=== PATIENT | male | born 1955 | race Caucasian/White ===

== ENCOUNTER → 2016-08-07 | Outpatient (CLI) | payer MEDICAID ==
[2016-08-07 11:28] LABS: HEMATOCRIT 42.9 % (37.9-51.0); HEMOGLOBIN 14.4 g/dL (13.5-17.0); HGB HCT DIFFERENCE 0.3; MEAN CORPUSCULAR HEMOGLOBIN 29.2 pg (27.0-33.4); MEAN CORPUSCULAR HGB CONC 33.6 g/dL (32.0-36.0); MEAN CORPUSCULAR VOLUME 87 fl (80-97); RED BLOOD COUNT 4.93 10^6/uL (4.35-5.55); RED CELL DISTRIBUTION WIDTH 13.3 % (11.5-14.0); WHITE BLOOD COUNT 3.4 10^3/uL (4.0-10.5)
[2016-08-07 11:51] LABS: ALANINE AMINOTRANSFERASE 98 U/L (21-72); ALBUMIN 4.2 g/dL (3.5-5.0); ALKALINE PHOSPHATASE 56 U/L (38-126); ANION GAP 10 (5-19); ASPARTATE AMINO TRANSFERASE 82 U/L (17-59); BILIRUBIN,TOTAL 0.7 mg/dL (0.2-1.3); BLOOD UREA NITROGEN 13 mg/dL (7-20); CALCIUM 9.5 mg/dL (8.4-10.2); CARBON DIOXIDE 26 mmol/L (22-30); CHLORIDE 106 mmol/L (98-107); CREATININE RESULT 0.99 mg/dL (0.52-1.25); GLUCOSE 89 mg/dL (75-110); POTASSIUM 4.5 mmol/L (3.6-5.0); SODIUM 142.1 mmol/L (137-145); TOTAL PROTEIN 7.4 g/dL (6.3-8.2)
== END ==
LOC: LAB 11:14
PROVIDERS: ATTEND Internal Medicine Gastroenterology
DX: K70.30 Alcoholic cirrhosis of liver without ascites (principal); R16.2 Hepatomegaly with splenomegaly, not elsewhere classified
CPT/HCPCS: 36415; 80048; 80076; 82105; 85027

== ENCOUNTER → 2017-02-28 | Outpatient (CLI) | payer MEDICAID ==
[2017-02-28 11:01] LABS: HEMATOCRIT 41.8 % (37.9-51.0); HEMOGLOBIN 14.4 g/dL (13.5-17.0); HGB HCT DIFFERENCE 1.4; MEAN CORPUSCULAR HEMOGLOBIN 30.3 pg (27.0-33.4); MEAN CORPUSCULAR HGB CONC 34.5 g/dL (32.0-36.0); MEAN CORPUSCULAR VOLUME 88 fl (80-97); RED BLOOD COUNT 4.76 10^6/uL (4.35-5.55); RED CELL DISTRIBUTION WIDTH 14.2 % (11.5-14.0)
[2017-02-28 11:21] LABS: ALANINE AMINOTRANSFERASE 120 U/L (21-72); ALKALINE PHOSPHATASE 57 U/L (38-126); ANION GAP 9 (5-19); ASPARTATE AMINO TRANSFERASE 113 U/L (17-59); BILIRUBIN,DIRECT 0.5 mg/dL (0.0-0.4); BILIRUBIN,TOTAL 0.9 mg/dL (0.2-1.3); BLOOD UREA NITROGEN 15 mg/dL (7-20); CALCIUM 9.2 mg/dL (8.4-10.2); CARBON DIOXIDE 25 mmol/L (22-30); CHLORIDE 104 mmol/L (98-107); CREATININE RESULT 1.06 mg/dL (0.52-1.25); GLUCOSE 97 mg/dL (75-110); POTASSIUM 4.5 mmol/L (3.6-5.0); SODIUM 137.9 mmol/L (137-145); TOTAL PROTEIN 7.3 g/dL (6.3-8.2)
== END ==
LOC: OD 09:36
PROVIDERS: ATTEND Physician Assistant Surgical
DX: K74.69 Other cirrhosis of liver (principal); R94.5 Abnormal results of liver function studies; K70.0 Alcoholic fatty liver; R16.1 Splenomegaly, not elsewhere classified
CPT/HCPCS: 36415; 80053; 82105; 85027

== ENCOUNTER → 2017-03-08 | Outpatient (CLI) | payer MEDICAID ==
--- NOTE | 2017-03-08 11:01 | RADIOLOGY REPORT (SQ) ---
EXAM DESCRIPTION: U/S ABDOMEN COMPLETE W/DOPPLER COMPLETED DATE/TIME: 03/08/2017 10:39 am REASON FOR STUDY: ALCOHOLIC FATTY LIVER R16.0 HEPATOMEGALY, NOT ELSEWHERE CLASSIFIED COMPARISON: None. TECHNIQUE: Dynamic and static grayscale images acquired of the abdomen and recorded on PACS. Additio nal selected color Doppler and spectral images recorded. LIMITATIONS: Body habitus. FINDINGS: PANCREAS: Poorly seen secondary to acoustical interference from fat or from air in the bow el. No visualized masses. Duct normal caliber as seen. LIVER: Heterogeneous echotexture. No mass identified. LIVER VASCULATURE: Normal directional flow in the main portal vein. Hepatic veins not visualized. GALLBLADDER: No stones. Normal wall thickness. No pericholecystic fluid. ULTRASOUND-DETECTED PELAYO'S SIGN: Negative. INTRAHEPATIC DUCTS AND COMMON DUCT: Limited visualization. Common bile duct approximately 3 mm. INFERIOR VENA CAVA: Not visualized. AORTA: No aneurysm. RIGHT KIDNEY: Normal size. Normal echogenicity. No solid or suspicious masses. No hydronephros is. No calcifications. LEFT KIDNEY: Normal size. Normal echogenicity. No solid or suspicious masses. No hydronephrosi s. No calcifications. SPLEEN:15.3 cm. No focal lesions. PERITONEAL AND PLEURAL SPACES: No ascites or effusions. OTHER: No other significant finding. IMPRESSION: Medical hepatic disease. Splenomegaly. No ascites. TECHNICAL DOCUMENTATION: JOB ID: [id number] [employer]- All Rights Reserved
== END ==
LOC: RAD 09:35
PROVIDERS: ATTEND Internal Medicine Gastroenterology
DX: K70.0 Alcoholic fatty liver (principal); R16.1 Splenomegaly, not elsewhere classified
CPT/HCPCS: 76700; 93976

== ENCOUNTER → 2018-03-05 | Outpatient (CLI) | payer MEDICARE ==
[2018-03-05 12:07] LABS: INTERNATIONAL RATION (INR) 1.02; PROTHROMBIN TIME 13.9 SEC (11.4-15.4)
[2018-03-05 12:16] LABS: ABSOLUTE EOSINOPHILS # (AUTO) 0.1 10^3/uL (0.0-0.6); ABSOLUTE LYMPHOCYTES (AUTO) 0.7 10^3/uL (0.5-4.7); ABSOLUTE MONOCYTES (AUTO) 0.2 10^3/uL (0.1-1.4); ABSOLUTE NEUT (AUTO) 1.7 10^3/uL (1.7-8.2); BASOPHILS % (AUTO) 0.8 % (0-2); EOSINOPHILS % (AUTO) 4.4 % (0-6); HEMOGLOBIN 14.2 g/dL (13.5-17.0); LYMPHOCYTES % (AUTO) 27.1 % (13-45); MEAN CORPUSCULAR HEMOGLOBIN 30.5 pg (27.0-33.4); MEAN CORPUSCULAR HGB CONC 34.7 g/dL (32.0-36.0); MEAN CORPUSCULAR VOLUME 88 fl (80-97); RED BLOOD COUNT 4.66 10^6/uL (4.35-5.55); RED CELL DISTRIBUTION WIDTH 13.6 % (11.5-14.0); SEGMENTED NEUTROPHILS % (AUTO) 60.7 % (42-78); TOTAL CELLS COUNTED % (AUTO) 100 %; WHITE BLOOD COUNT 2.8 10^3/uL (4.0-10.5)
[2018-03-05 12:33] LABS: PLATELET COUNT 90 10^3/uL (150-450)
[2018-03-05 12:34] LABS: ALANINE AMINOTRANSFERASE 99 U/L (21-72); ALBUMIN 3.7 g/dL (3.5-5.0); ALKALINE PHOSPHATASE 54 U/L (38-126); ANION GAP 11 (5-19); ASPARTATE AMINO TRANSFERASE 104 U/L (17-59); BILIRUBIN,DIRECT 0.4 mg/dL (0.0-0.4); BILIRUBIN,TOTAL 0.9 mg/dL (0.2-1.3); BLOOD UREA NITROGEN 14 mg/dL (7-20); CALCIUM 9.1 mg/dL (8.4-10.2); CARBON DIOXIDE 23 mmol/L (22-30); CHLORIDE 108 mmol/L (98-107); POTASSIUM 4.6 mmol/L (3.6-5.0); SODIUM 142.4 mmol/L (137-145); TOTAL PROTEIN 7.1 g/dL (6.3-8.2)
[2018-03-05 12:36] LABS: GLUCOSE 97 mg/dL (75-110)
== END ==
LOC: OD 11:15
PROVIDERS: ATTEND Physician Assistant Surgical
DX: K70.30 Alcoholic cirrhosis of liver without ascites (principal); D69.6 Thrombocytopenia, unspecified
CPT/HCPCS: 36415; 80053; 82105; 85025; 85610

== ENCOUNTER → 2018-03-11 | Outpatient (CLI) | payer BC, MEDICARE ==
--- NOTE | 2018-03-11 09:40 | RADIOLOGY REPORT (SQ) ---
EXAM DESCRIPTION: U/S ABDOMEN LIMITED W/O DOP COMPLETED DATE/TIME: 03/11/2018 9:12 am REASON FOR STUDY: K70.30 ALCOHOLIC CIRRHOSIS OF LIVER WITHOUT ASCITES K70.30 ALCOHOLIC CIRRHOSIS OF LIVER WITHOUT ASCITES R16.1 SPLENOMEGALY, NOT ELSEWHERE CLASSIFIED COMPARISON: 03/08/2017 TECHNIQUE: Dynamic and static grayscale images acquired of the abdomen and recorded on PACS. Additio nal selected color Doppler and spectral images recorded. LIMITATIONS: None. FINDINGS: PANCREAS: Limited visualization. No focal masses. LIVER: There is fatty infiltration of the liver. No focal lesions. LIVER VASCULATURE: Normal directional flow of the main portal vein and hepatic veins. GALLBLADDER: There is gallbladder sludge. No stones. No wall thickening. ULTRASOUND-DETECTED PELAYO'S SIGN: Negative. INTRAHEPATIC DUCTS AND COMMON DUCT: CBD and intrahepatic ducts normal caliber. No filling defects. INFERIOR VENA CAVA: Not visualized. AORTA: Visualized aorta is unremarkable. RIGHT KIDNEY: Normal size. Normal echogenicity. No solid or suspicious masses. No hydronephrosis. No calcifications. PERITONEAL AND RIGHT PLEURAL SPACE: No ascites or effusions. OTHER: No other significant findings. IMPRESSION: Fatty infiltrated liver. Gallbladder sludge. No other significant findings. TECHNICAL DOCUMENTATION: JOB ID: [id number] [employer]- All Rights Reserved Reading location - IP/workstation name: [email or web address]
== END ==
LOC: RAD 08:04
PROVIDERS: ATTEND Internal Medicine Gastroenterology
DX: K70.30 Alcoholic cirrhosis of liver without ascites (principal); R16.1 Splenomegaly, not elsewhere classified
CPT/HCPCS: 76705

== ENCOUNTER → 2018-06-10 | Outpatient (CLI) | payer MEDICARE ==
--- NOTE | 2018-06-10 10:14 | RADIOLOGY REPORT (SQ) ---
EXAM DESCRIPTION: KNEE LEFT 4 VIEWS COMPLETED DATE/TIME: 06/10/2018 9:55 am REASON FOR STUDY: PAIN IN LT KNEE M25.562 PAIN IN LEFT KNEE COMPARISON: 09/01/2014 NUMBER OF VIEWS: Four views. TECHNIQUE: AP, lateral, and both oblique radiographic images acquired of the left knee. LIMITATIONS: None. FINDINGS: MINERALIZATION: Normal. BONES: No acute fracture or dislocation. No worrisome bone lesions. JOINT: No effusion. SOFT TISSUES: No soft tissue swelling. No radio-opaque foreign body. OTHER: No other significant finding. IMPRESSION: NEGATIVE STUDY OF THE LEFT KNEE. NO RADIOGRAPHIC EVIDENCE OF ACUTE INJURY. TECHNICAL DOCUMENTATION: JOB ID: [id number] [employer]- All Rights Reserved Reading location - IP/workstation name: [email or web address]
== END ==
LOC: OD 09:40
PROVIDERS: ATTEND Family Medicine
DX: M25.562 Pain in left knee (principal)

== ENCOUNTER → 2018-09-10 | Outpatient (CLI) | payer MEDICARE ==
[2018-09-10 09:10] LABS: HEMATOCRIT 40.5 % (37.9-51.0); HEMOGLOBIN 14.2 g/dL (13.5-17.0); MEAN CORPUSCULAR HEMOGLOBIN 31.5 pg (27.0-33.4); MEAN CORPUSCULAR HGB CONC 35.1 g/dL (32.0-36.0); MEAN CORPUSCULAR VOLUME 90 fl (80-97); RED BLOOD COUNT 4.52 10^6/uL (4.35-5.55); RED CELL DISTRIBUTION WIDTH 13.7 % (11.5-14.0); WHITE BLOOD COUNT 2.5 10^3/uL (4.0-10.5)
[2018-09-10 09:21] LABS: INTERNATIONAL RATION (INR) 0.97; PROTHROMBIN TIME 13.4 SEC (11.4-15.4)
[2018-09-10 09:33] LABS: CHOLESTEROL 221.02 mg/dL (0-200); TRIGLYCERIDES 140 mg/dL (<150)
[2018-09-10 09:34] LABS: PLATELET COUNT 87 10^3/uL (150-450)
[2018-09-10 09:37] LABS: ALANINE AMINOTRANSFERASE 102 U/L (21-72); ALKALINE PHOSPHATASE 66 U/L (38-126); ANION GAP 8 (5-19); ASPARTATE AMINO TRANSFERASE 120 U/L (17-59); BILIRUBIN,DIRECT 0.3 mg/dL (0.0-0.4); BILIRUBIN,TOTAL 0.7 mg/dL (0.2-1.3); BLOOD UREA NITROGEN 15 mg/dL (7-20); CALCIUM 9.6 mg/dL (8.4-10.2); CARBON DIOXIDE 25 mmol/L (22-30); CHLORIDE 109 mmol/L (98-107); GLUCOSE 102 mg/dL (75-110); POTASSIUM 4.2 mmol/L (3.6-5.0); SODIUM 141.6 mmol/L (137-145); TOTAL PROTEIN 7.1 g/dL (6.3-8.2)
[2018-09-10 09:44] LABS: DIRECT LDL 111 mg/dL (<100)
== END ==
LOC: OD 07:55
PROVIDERS: ATTEND Physician Assistant Surgical
DX: E78.5 Hyperlipidemia, unspecified (principal); I10 Essential (primary) hypertension; K70.30 Alcoholic cirrhosis of liver without ascites; Z12.5 Encounter for screening for malignant neoplasm of prostate; M17.0 Bilateral primary osteoarthritis of knee
CPT/HCPCS: 36415; 84443; 85027; 85610; 80076; 80048; 80061; G0103

== ENCOUNTER → 2019-05-04 | Outpatient (CLI) | payer MEDICARE ==
--- NOTE | 2019-05-04 11:30 | RADIOLOGY REPORT (SQ) ---
EXAM DESCRIPTION: U/S ABDOMEN LIMITED W/O DOP COMPLETED DATE/TIME: 05/04/2019 7:58 am REASON FOR STUDY: ALCOHOLIC CIRRHOSIS OF LIVER W/O ASCITES (K70.30) K70.30 ALCOHOLIC CIRRHOSIS OF L IVER WITHOUT ASCITES COMPARISON: 03/11/2018 TECHNIQUE: Dynamic and static grayscale images acquired of the abdomen and recorded on PACS. Additio nal selected color Doppler and spectral images recorded. LIMITATIONS: None. FINDINGS: PANCREAS: No masses. Visualized pancreatic duct normal caliber. LIVER: The liver is somewhat nodular. There is increased echogenicity. LIVER VASCULATURE: Normal directional flow of the main portal vein and hepatic veins. GALLBLADDER: No stones. Normal wall thickness. No pericholecystic fluid. ULTRASOUND-DETECTED PELAYO'S SIGN: Negative. INTRAHEPATIC DUCTS AND COMMON DUCT: CBD and intrahepatic ducts normal caliber. No filling defects. INFERIOR VENA CAVA: Normal flow. AORTA: No aneurysm. RIGHT KIDNEY: Normal size, 13.2 cm. Normal echogenicity. No solid or suspicious masses. No hydroneph rosis. No calcifications. PERITONEAL AND RIGHT PLEURAL SPACE: No ascites or effusions. OTHER: No other significant findings. IMPRESSION: Hepatic cirrhosis. No ascites. TECHNICAL DOCUMENTATION: JOB ID: [id number] [employer]- All Rights Reserved Reading location - IP/workstation name: [email or web address]
== END ==
LOC: RAD 07:05
PROVIDERS: ATTEND Internal Medicine Gastroenterology
DX: K70.30 Alcoholic cirrhosis of liver without ascites (principal)
CPT/HCPCS: 76705

== ENCOUNTER → 2019-05-20 | Outpatient (CLI) | payer MEDICARE ==
[2019-05-20 14:34] LABS: ABSOLUTE EOSINOPHILS # (AUTO) 0.2 10^3/uL (0.0-0.6); ABSOLUTE LYMPHOCYTES (AUTO) 0.9 10^3/uL (0.5-4.7); ABSOLUTE MONOCYTES (AUTO) 0.3 10^3/uL (0.1-1.4); ABSOLUTE NEUT (AUTO) 1.9 10^3/uL (1.7-8.2); BASOPHILS % (AUTO) 0.9 % (0-2); HEMOGLOBIN 15.2 g/dL (13.5-17.0); MEAN CORPUSCULAR HEMOGLOBIN 31.7 pg (27.0-33.4); MEAN CORPUSCULAR HGB CONC 35.3 g/dL (32.0-36.0); MEAN CORPUSCULAR VOLUME 90 fl (80-97); MONOCYTES % (AUTO) 8.2 % (3-13); RED BLOOD COUNT 4.78 10^6/uL (4.35-5.55); RED CELL DISTRIBUTION WIDTH 13.8 % (11.5-14.0); SEGMENTED NEUTROPHILS % (AUTO) 58.9 % (42-78); TOTAL CELLS COUNTED % (AUTO) 100 %; WHITE BLOOD COUNT 3.2 10^3/uL (4.0-10.5)
[2019-05-20 14:35] LABS: INTERNATIONAL RATION (INR) 1.11; PROTHROMBIN TIME 14.3 SEC (11.4-15.4)
[2019-05-20 14:56] LABS: ALKALINE PHOSPHATASE 69 U/L (38-126); ANION GAP 11 (5-19); ASPARTATE AMINO TRANSFERASE 138 U/L (17-59); BILIRUBIN,DIRECT 0.3 mg/dL (0.0-0.4); BILIRUBIN,TOTAL 1.1 mg/dL (0.2-1.3); BLOOD UREA NITROGEN 14 mg/dL (7-20); CALCIUM 9.6 mg/dL (8.4-10.2); CARBON DIOXIDE 25 mmol/L (22-30); CHLORIDE 107 mmol/L (98-107); GLUCOSE 88 mg/dL (75-110); POTASSIUM 4.6 mmol/L (3.6-5.0); TOTAL PROTEIN 7.8 g/dL (6.3-8.2)
[2019-05-20 14:57] LABS: PLATELET COUNT 86 10^3/uL (150-450)
== END ==
LOC: OD 12:50
PROVIDERS: ATTEND Physician Assistant
DX: K70.30 Alcoholic cirrhosis of liver without ascites (principal); D69.6 Thrombocytopenia, unspecified; R94.5 Abnormal results of liver function studies; K76.6 Portal hypertension
CPT/HCPCS: 36415; 80048; 80076; 82105; 85025; 85610

== ENCOUNTER → 2020-03-31 | Outpatient (CLI) | payer MEDICARE ==
--- NOTE | 2020-03-31 13:16 | RADIOLOGY REPORT (SQ) ---
EXAM DESCRIPTION: U/S ABDOMEN LIMITED W/O DOP IMAGES COMPLETED DATE/TIME: 03/31/2020 10:23 am REASON FOR STUDY: K47.69 OTHER CIRRHOSIS OF LIVER K74.69 OTHER CIRRHOSIS OF LIVER COMPARISON: 05/04/2019 TECHNIQUE: Dynamic and static grayscale images acquired of the abdomen and recorded on PACS. Additio nal selected color Doppler and spectral images recorded. LIMITATIONS: None. FINDINGS: PANCREAS: Not seen. LIVER: Increased echogenicity. No masses. LIVER VASCULATURE: Normal directional flow of the main portal vein and hepatic veins. GALLBLADDER: No stones. Normal wall thickness. No pericholecystic fluid. ULTRASOUND-DETECTED PELAYO'S SIGN: Negative. INTRAHEPATIC DUCTS AND COMMON DUCT: CBD and intrahepatic ducts normal caliber. No filling defects. AORTA: No aneurysm. RIGHT KIDNEY: Normal size, 12.1 cm. Normal echogenicity. No solid or suspicious masses. No hydroneph rosis. No calcifications. PERITONEAL AND RIGHT PLEURAL SPACE: No ascites or effusions. OTHER: No other significant findings. IMPRESSION: Hepatic steatosis. No other significant finding. TECHNICAL DOCUMENTATION: JOB ID: [id number] [employer]- All Rights Reserved Reading location - IP/workstation name: [email or web address]
== END ==
LOC: RAD 09:06
PROVIDERS: ATTEND Internal Medicine Gastroenterology
DX: K74.69 Other cirrhosis of liver (principal)
CPT/HCPCS: 76705

== ENCOUNTER → 2020-05-26 | Outpatient (CLI) | payer MEDICARE ==
[2020-05-26 12:23] LABS: INTERNATIONAL RATION (INR) 1.07; PROTHROMBIN TIME 14.1 SEC (11.4-15.4)
--- OUTSIDE RECORDS SUMMARY | 2020-05-27 15:16 | XMS REPORT ---
:1955 [facility] [address] [place] [id number] Care Team Providers Name Role Phone Ad Norwood Attending Clinician Unavailable Ad Norwood Attending Clinician Unavailable Berenice Urbina Attending Clinician Unavailable Allergies, Adverse Reactions, Alerts This patient has no known allergies or adverse reactions. Medications This patient has no known medications. Problems This patient has no known problems. Procedures Procedure Date / Time Performed Performing Clinician Devic e OFFICE/OUTPATIENT VISIT EST 2020-04-11 08:00:00 OFFICE/OUTPATIENT VISIT EST 2020-01-26 08:15:00 OFFICE/OUTPATIENT VISIT EST 2019-10-27 08:45:00 OFFICE/OUTPATIENT VISIT EST 2019-07-13 08:15:00 IMMUNIZATION ADMIN EACH ADD 2019-04-13 08:30:00 OFFICE/OUTPATIENT VISIT EST 2019-04-13 08:30:00 OFFICE/OUTPATIENT VISIT EST 2018-12-09 08:15:00 OFFICE/OUTPATIENT VISIT EST 2018-09-09 08:15:00 OFFICE/OUTPATIENT VISIT EST 2018-06-10 08:15:00 OFFICE/OUTPATIENT VISIT EST 2018-03-10 14:15:00 OFFICE/OUTPATIENT VISIT EST 2017-08-30 09:45:00 OFFICE/OUTPATIENT VISIT EST 2016-12-25 10:00:00 MEDICAL TESTIMONY 2015-09-23 00:00:00 OFFICE/OUTPATIENT VISIT, EST 2014-07-01 08:30:00 FLU VACCINE AGE 3 \T\ OVER, IM 2014-05-07 07:45:00 IMMUNIZATION ADMIN 2014-05-07 07:45:00 OFFICE/OUTPATIENT VISIT, EST 2014-05-07 07:45:00 OFFICE/OUTPATIENT VISIT, EST 2014-04-13 10:45:00 URINALYSIS, AUTO, W/O SCOPE 2014-04-13 10:45:00 ROUTINE VENIPUNCTURE 2014-04-13 10:45:00 COMPREHEN METABOLIC PANEL 2014-04-13 10:45:00 COMPLETE CBC W/AUTO DIFF WBC 2014-04-13 10:45:00 CHEST X-RAY 2014-04-13 10:45:00 LIPID PANEL 2014-03-04 08:00:00 COMPREHEN METABOLIC PANEL 2014-03-04 08:00:00 ASSAY OF PSA, TOTAL 2014-03-04 08:00:00 OFFICE/OUTPATIENT VISIT, EST 2014-03-04 08:00:00 ROUTINE VENIPUNCTURE 2014-03-04 08:00:00 COMPREHEN METABOLIC PANEL 2013-11-03 08:00:00 OFFICE/OUTPATIENT VISIT, EST 2013-11-03 08:00:00 COMPLETE CBC, AUTOMATED 2013-11-03 08:00:00 ROUTINE VENIPUNCTURE 2013-11-03 08:00:00 LIPID PANEL 2013-11-03 08:00:00 Results Test Description Test Time Test Comments Text Results Atomic Results Result Comments TSH 2020-01-26 08:53:00 2.25 COMPREHENSIVE METABOLIC PANEL 2020-01-26 08:53:00 Test Item Value Reference Range Comments CARBON DIOXIDE (test code = 20326653) 25 mmol/L 20-32 PROTEIN, TOTAL (test code = 73504906) 7.1 g/dL 6.1-8.1 eGFR NON-AFR. BELIZEAN (test code = 77667153) 89 mL/min/1.73m2 > OR = 60 GLOBULIN (test code = 83023887) 3.6 g/dL (calc) 1.9-3.7 eGFR (test code = 04339880) 103 mL/min/1.73m2 > OR = 60 CREATININE (test code = 66085436) 0.92 mg/dL 0.70-1.25 GLUCOSE (test code = 98395729) 106 mg/dL 65-99 CALCIUM (test code = 09173437) 9.0 mg/dL 8.6-10.3 ALBUMIN (test code = 66234958) 3.5 g/dL 3.6-5.1 ALBUMIN/GLOBULIN RATIO (test code = 80915038) 1.0 (calc) 1. 0-2.5 POTASSIUM (test code = 90874117) 4.3 mmol/L 3.5-5.3 ALKALINE PHOSPHATASE (test code = 62941504) 60 U/L 35-1 44 UREA NITROGEN (BUN) (test code = 52069968) 14 mg/dL 7-25 BILIRUBIN, TOTAL (test code = 92576757) 0.9 mg/dL 0.2-1.2 ALT (test code = 39365010) 64 U/L 9-46 BUN/CREATININE RATIO (test code = 32783681) NOT APPLICABLE (calc ) 6-22 CHLORIDE (test code = 34008905) 108 mmol/L 98-110 AST (test code = 72427723) 89 U/L 10-35 SODIUM (test code = 09821476) 138 mmol/L 135-146 CBC (INCLUDES DIFF/PLT)2020-01-26 08:53:00 Test Item Value Reference Range Comments MONOCYTES (test code = 9.8 % 14551573) ABSOLUTE MONOCYTES (test code = 225 cells/uL 200-950 03098248) MPV (test code = 39687583) 11.0 fL 7.5-12.5 ABSOLUTE EOSINOPHILS (test code 108 cells/uL 15-500 = 09451671) LYMPHOCYTES (test code = 27.8 % 87217653) BASOPHILS (test code = 0.9 % 41886023) MCH (test code = 60544660) 30.5 pg 27.0-33.0 RED BLOOD CELL COUNT (test code 4.36 Million/uL 4.20-5.80 = 59391334) ABSOLUTE NEUTROPHILS (test code 1306 cells/uL 9771-3142 = 63678077) HEMOGLOBIN (test code = 13.3 g/dL 13.2-17.1 60127028) HEMATOCRIT (test code = 40.7 % 38.5-50.0 76670586) MCHC (test code = 56256872) 32.7 g/dL 32.0-36.0 ABSOLUTE BASOPHILS (test code = 21 cells/uL 0-200 26749660) COMMENT(S) (test code = No platelet clumps seen. 17724028) Review of peripheral smear confirms automated results. EOSINOPHILS (test code = 4.7 % 61997400) ABSOLUTE LYMPHOCYTES (test code 639 cells/uL 850-3900 = 33337982) MCV (test code = 15346240) 93.3 fL 80.0-100.0 NEUTROPHILS (test code = 56.8 % 67140210) WHITE BLOOD CELL COUNT (test 2.3 Thousand/uL 3.8-10.8 code = 16731248) PLATELET COUNT (test code = 67 Thousand/uL 140-400 73487030) RDW (test code = 40579741) 13.3 % 11.0-15.0 LIPID PANEL, [id number] 08:53:00 Test Item Value Reference Range Comments NON HDL CHOLESTEROL (test code = 62028976) 140 mg/dL (calc) <130 CHOLESTEROL, TOTAL (test code = 66994797) 216 mg/dL <200 LDL-CHOLESTEROL (test code = 55878494) 117 mg/dL (calc) HDL CHOLESTEROL (test code = 37422891) 76 mg/dL > OR = 40 TRIGLYCERIDES (test code = 18060662) 122 mg/dL <150 CHOL/HDLC RATIO (test code = 59278521) 2.8 (calc) <5.0 HEMOGLOBIN A1c WITH [id number] 09:13:00 Test Item Value Reference Range Comments eAG (mmol/L) (test code = 03413843) 5.8 (calc) eAG (mg/dL) (test code = 89144066) 105 (calc) HEMOGLOBIN A1c (test code = 4548-4) 5.3 % of total Hgb <5.7 COMPREHENSIVE METABOLIC [id number] 09:13:00 Test Item Value Reference Range Comments CHLORIDE (test code = 42004508) 107 mmol/L 98-110 eGFR (test code = 84 mL/min/1.73m2 > OR = 60 35169304) CALCIUM (test code = 56222703) 9.0 mg/dL 8.6-10.3 PROTEIN, TOTAL (test code = 82146312) 6.9 g/dL 6.1-8.1 SODIUM (test code = 54990063) 137 mmol/L 135-146 GLUCOSE (test code = 90662530) 101 mg/dL 65-139 POTASSIUM (test code = 51640098) 4.3 mmol/L 3.5-5.3 CARBON DIOXIDE (test code = 38894983) 26 mmol/L 20-32 ALBUMIN/GLOBULIN RATIO (test code = 1.1 (calc) 1.0-2.5 43967969) GLOBULIN (test code = 77235716) 3.3 g/dL (calc) 1.9-3.7 UREA NITROGEN (BUN) (test code = 16 mg/dL 7-25 30106794) BUN/CREATININE RATIO (test code = NOT APPLICABLE (calc) 6-22 64855847) ALT (test code = 77171523) 53 U/L 9-46 ALKALINE PHOSPHATASE (test code = 57 U/L 35-144 20405688) BILIRUBIN, TOTAL (test code = 1.0 mg/dL 0.2-1.2 82045662) eGFR NON-AFR. BELIZEAN (test code = 72 mL/min/1.73m2 > OR = 60 92922608) ALBUMIN (test code = 66679965) 3.6 g/dL 3.6-5.1 CREATININE (test code = 36675247) 1.09 mg/dL 0.70-1.25 AST (test code = 32734276) 69 U/L 10-35 LIPID PANEL WITH REFLEX TO DIRECT [id number] 09:13:00 Test Item Value Reference Range Comments CHOL/HDLC RATIO (test code = 07627826) 3.2 (calc) <5.0 TRIGLYCERIDES (test code = 59070450) 123 mg/dL <150 CHOLESTEROL, TOTAL (test code = 52179427) 221 mg/dL <200 NON HDL CHOLESTEROL (test code = 50170582) 152 mg/dL (calc) <130 HDL CHOLESTEROL (test code = 22687578) 69 mg/dL > OR = 40 LDL-CHOLESTEROL (test code = 25254686) 129 mg/dL (calc) CBC (INCLUDES DIFF/PLT)2019-10-27 09:13:00 Test Item Value Reference Range Comments MONOCYTES (test code = 73955514) 9.8 % WHITE BLOOD CELL COUNT (test code = 3.0 Thousand/uL 3.8-10.8 28623267) ABSOLUTE NEUTROPHILS (test code = 81398037) 1743 cells/uL 1500 -7800 MCHC (test code = 18408630) 34.4 g/dL 32.0-36.0 MCV (test code = 01452721) 91.2 fL 80.0-100.0 HEMOGLOBIN (test code = 42120491) 14.6 g/dL 13.2-17.1 ABSOLUTE BASOPHILS (test code = 11693019) 30 cells/uL 0-200 ABSOLUTE MONOCYTES (test code = 58750516) 294 cells/uL 200-95 0 ABSOLUTE LYMPHOCYTES (test code = 46050144) 801 cells/uL 850- 3900 EOSINOPHILS (test code = 20811353) 4.4 % BASOPHILS (test code = 99160037) 1.0 % RED BLOOD CELL COUNT (test code = 41402161) 4.65 Million/uL 4.20 -5.80 ABSOLUTE EOSINOPHILS (test code = 19349390) 132 cells/uL 15-5 00 MCH (test code = 81028767) 31.4 pg 27.0-33.0 RDW (test code = 15632217) 13.1 % 11.0-15.0 NEUTROPHILS (test code = 81509984) 58.1 % HEMATOCRIT (test code = 90967526) 42.4 % 38.5-50.0 LYMPHOCYTES (test code = 23793038) 26.7 % PLATELET COUNT (test code = 45379975) 76 Thousand/uL 140-400 MPV (test code = 86496455) 11.1 fL 7.5-12.5 HEPATITIS C AB W/REFL TO HCV RNA, QN, [id number] 09:13:00 Test Item Value Reference Range Comments SIGNAL TO CUT-OFF (test code = 01861322) 0.02 <1.00 HEPATITIS C ANTIBODY (test code = 43503794) NON-REACTIVE NON- REACTIVE [id number] 09:13:003.18PSA,MEDICARE (AGE>49)\S\[id number] 08:38:00 Test Item Value Reference Range Comments PSA,MEDICARE (AGE>49) (test code = PSAM) 0.120 ng/mL <4.00 THYROID STIMULATING HORMONE\[id number] 08:38:00 Test Item Value Reference Range Comments THYROID STIMULATING HORMONE (test code = TSHE) 3.46 uIU/mL 0 .47-4.68 LIPID PANEL\[id number] 08:38:00 Test Item Value Reference Range Comments DIRECT LDL (test code = DLDL) 111 mg/dL <100 Direct HDL (test code = DHDL) 75 mg/dL >40 VLDL CHOLESTEROL (test code = VLDL) 28.0 mg/dL 10-31 CHOLESTEROL (test code = CHOL) 221.02 mg/dL 0-200 TRIGLYCERIDES (test code = TRIG) 140 mg/dL <150 [id number] 10:31:00 Test Item Value Reference Range Comments TSH (test code = 515177) 3.60 mIU/L 0.40-4.50 CBC with [id number] 10:31:00 Test Item Value Reference Range Comments MCHC (test code = 121021) 33.6 g/dL 32.0-36.0 Smear Review (test code = Criteria for review not met 809543) Baso % (test code = 438054) 1 % Absolute Neut (test code = 1566 cells/uL 3412-2830 238008) Absolute Lymph (test code = 899 cells/uL 850-3900 860195) WBC (test code = 647254) 2.9 K/uL 3.8-10.8 Hemoglobin (test code = 804875) 14.7 g/dL 13.2-17.1 Platelet Count (test code = 93 K/uL 140-400 362402) Absolute [place] (test code = 261 cells/uL 200-950 667345) [place] % (test code = 076353) 9 % Lymph % (test code = 838017) 31 % Hematocrit (test code = 811900) 43.7 % 38.5-50.0 MCH (test code = 769794) 29.9 pg 27.0-33.0 Absolute Eos (test code = 145 cells/uL 15-500 434113) MCV (test code = 332552) 88.8 fL 80.0-100.0 RBC (test code = 834847) 4.92 MIL/uL 4.20-5.80 MPV (test code = 532280) 9.7 fL 7.5-12.5 Absolute Baso (test code = 29 cells/uL 0-200 301517) RDW (test code = 900067) 13.7 % 11.0-15.0 Neutrophils % (test code = 54 % 820787) Eos % (test code = 807924) 5 % Hemoglobin A1c with [id number] 10:31:00 Test Item Value Reference Range Comments Hemoglobin A1C (test code = 165688) 5.3 % <5.7 eAG (calc) (test code = 865670) 105 mg/dL Lipid [id number] 10:31:00 Test Item Value Reference Range Comments Triglycerides (test code = 307491) 133 mg/dL <150 Total Chol/HDL Ratio (test code = 242469) 3.8 Ratio <5.0 VLDL Cholesterol (Calc) (test code = 728406) 27 mg/dL <30 Cholesterol (test code = 532323) 218 mg/dL <200 HDL Cholesterol (test code = 653418) 58 mg/dL >40 LDL Cholesterol (Calc) (test code = 912066) 133 mg/dL <100 CMP with Estimated [id number] 10:31:00 Test Item Value Reference Range Comments CO2 (test code = 555918) 24 mmol/L 20-31 Albumin (test code = 279200) 3.7 g/dL 3.6-5.1 Glucose (test code = 363951) 86 mg/dL 65-99 Total Protein (test code = 582278) 6.9 g/dL 6.1-8.1 Calcium (test code = 826822) 8.9 mg/dL 8.6-10.3 Potassium (test code = 342130) 4.2 mmol/L 3.5-5.3 Chloride (test code = 632426) 105 mmol/L 98-110 Est GFR, (test code = 003705) 82 mL/min > =60 BUN (test code = 564737) 13 mg/dL 7-25 Bilirubin, Total (test code = 664513) 0.9 mg/dL 0.2-1.2 ALT/SGPT (test code = 990075) 95 U/L 9-46 Sodium (test code = 141865) 138 mmol/L 135-146 Alkaline Phosphatase (test code = 621646) 53 U/L 40-115 Est GFR, NonAfrican Angolan (test code = 583852) 71 mL/min >=60 Creatinine (test code = 382548) 1.12 mg/dL 0.70-1.25 AST/SGOT (test code = 190198) 91 U/L 10-35 CBC W/DIFF [id number] 11:31:00 Test Item Value Reference Range Comments HCT (test code = HCT) 43.3 % 37.7-46.5 HGB (test code = HGB) 14.7 G/DL 12.9-16.1 MO# (test code = MO#) 0.2 # 0.3-0.8 EO# (test code = EO#) 0.1 K/uL 0.0-0.5 BA% (test code = BA%) 0.3 % 0.0-1.1 MCV (test code = MCV) 86 FL 79-95 PLT (test code = PLT) 103 L K/UL 165-353 LY% (test code = LY%) 33.1 % 16.8-43.5 WBC (test code = WBC) 3.2 L K/UL 3.6-11.1 RBC (test code = RBC) 5.02 CU/MM 4.27-5.49 MO% (test code = MO%) 6.4 % 4.6-12.4 MCHC (test code = MCHC) 34.0 G/DL 33.5-35.5 RDW (test code = RDW) 14.0 % 12.0-15.1 EO% (test code = EO%) 2.9 % 0.0-7.8 LY# (test code = LY#) 1.0 L # 1.1-2.7 NE# (test code = NE#) 1.8 L # 1.9-7.2 MPV (test code = MPV) 9.3 FL 7.5-10.7 BA# (test code = BA#) 0.0 K/uL 0.0-0.1 MCH (test code = MCH) 29.3 PQ 26.8-33.2 NE% (test code = NE%) 57.3 % 43.3-71.9 CHEM [id number] 11:31:00 Test Item Value Reference Range Comments CR (test code = CR) 1.2 MG/DL 0.4-1.3 ION GAP (test code = ION GAP) 18 4-16 ALT (test code = ALT) 161 U/L 9-61 GLOB (test code = GLOB) 4.3 1.9-4.5 EGFRAA (test code = EGFRAA) 80.34 >60.00 BUN (test code = BUN) 16 MG/DL 7-18 ALK PHOS (test code = ALK PHOS) 60 U/L 50-136 ALB (test code = ALB) 3.5 G/DL 3.2-4.7 AST (test code = AST) 137 U/L 9-37 BILT (test code = BILT) 1.0 MG/DL 0.1-1.0 GLU (test code = GLU) 88 MG/DL 70-110 EGFR (test code = EGFR) 66.28 >60.00 BUN/CREAT RATIO (test code = BUN/CREAT RATIO) 13 10 -14 CA (test code = CA) 8.8 MG/DL 8.5-10.1 TP (test code = TP) 7.8 G/DL 6.9-8.5 CO2 (test code = CO2) 20.6 MMOL/L 21.0-32.0 K (test code = K) 4.4 MMOL/L 3.5-5.1 CL (test code = CL) 104 MMOL/L 98-110 NA (test code = NA) 138 MMOL/L 135-145 URINALYSIS([id number] 10:52:00 Test Item Value Reference Range Comments ADAMA (test code = ADAMA) Negative Negative UBLD (test code = UBLD) Trace-intact Negative COLOR (test code = COLOR) Yellow Yellow CLAR (test code = CLAR) Clear Clear NIT (test code = NIT) Negative Negative SPGR (test code = SPGR) 1.025 1.010-1.030 UBIL (test code = UBIL) 1+ MG/DL Negative PH (test code = PH) 6.0 UUROBIL (test code = UUROBIL) 1.0 E.U./dL 0.2, 1.0 UGLU (test code = UGLU) Negative Negative TPU (test code = TPU) Negative Negative UKET (test code = UKET) Negative Negative URINE [id number] 10:52:00 Test Item Value Reference Range Comments EPI (test code = EPI) 10-15 None UWBC (test code = UWBC) None NONE URBC (test code = URBC) 1-2 None HILARY (test code = HILARY) 1+ None LIPID [id number] 08:41:00 Test Item Value Reference Range Comments CHD (test code = CHD) 27.32 CHOL (test code = CHOL) 205 MG/DL 140-200 TGL (test code = TGL) 116 MG/DL 30-200 HDL (test code = HDL) 56 MG/DL 32-96 DLDL (test code = DLDL) 119 MG/DL 100-130 [id number] 08:41:00 Test Item Value Reference Range Comments PSA (test code = PSA) 0.2 NG/ML 0.0-4.0 CHEM [id number] 08:41:00 Test Item Value Reference Range Comments GLOB (test code = GLOB) 4.0 1.9-4.5 ALT (test code = ALT) 102 U/L 9-61 EGFRAA (test code = EGFRAA) 80.37 >60.00 TP (test code = TP) 7.6 G/DL 6.9-8.5 BUN/CREAT RATIO (test code = BUN/CREAT RATIO) 11 10 -14 CA (test code = CA) 8.5 MG/DL 8.5-10.1 GLU (test code = GLU) 98 MG/DL 70-110 CL (test code = CL) 107 MMOL/L 98-110 CO2 (test code = CO2) 27.3 MMOL/L 21.0-32.0 EGFR (test code = EGFR) 66.31 >60.00 ALB (test code = ALB) 3.6 G/DL 3.2-4.7 K (test code = K) 4.2 MMOL/L 3.5-5.1 NA (test code = NA) 140 MMOL/L 135-145 ALK PHOS (test code = ALK PHOS) 69 U/L 50-136 AST (test code = AST) 69 U/L 9-37 ION GAP (test code = ION GAP) 10 4-16 CR (test code = CR) 1.2 MG/DL 0.4-1.3 BILT (test code = BILT) 0.5 MG/DL 0.1-1.0 BUN (test code = BUN) 13 MG/DL 7-18 CHEM [id number] 08:39:00 Test Item Value Reference Range Comments BUN (test code = BUN) 13 MG/DL 7-18 TP (test code = TP) 7.5 G/DL 6.9-8.5 ALK PHOS (test code = ALK PHOS) 72 U/L 50-136 ALB (test code = ALB) 3.3 G/DL 3.2-4.7 EGFRAA (test code = EGFRAA) 88.96 >60.00 BILT (test code = BILT) 0.6 MG/DL 0.1-1.0 GLU (test code = GLU) 103 MG/DL 70-110 NA (test code = NA) 139 MMOL/L 135-145 ALT (test code = ALT) 91 U/L 9-61 ION GAP (test code = ION GAP) 13 4-16 K (test code = K) 4.2 MMOL/L 3.5-5.1 CO2 (test code = CO2) 26.8 MMOL/L 21.0-32.0 BUN/CREAT RATIO (test code = BUN/CREAT RATIO) 12 10 -14 AST (test code = AST) 58 U/L 9-37 CA (test code = CA) 9.0 MG/DL 8.5-10.1 EGFR (test code = EGFR) 73.40 >60.00 CR (test code = CR) 1.1 MG/DL 0.4-1.3 CL (test code = CL) 103 MMOL/L 98-110 GLOB (test code = GLOB) 4.2 1.9-4.5 [id number] 08:39:00 Test Item Value Reference Range Comments PLT (test code = PLT) 97 L K/UL 165-353 RDW (test code = RDW) 14.3 % 12.0-15.1 HCT (test code = HCT) 43.0 % 37.7-46.5 MCHC (test code = MCHC) 34.3 G/DL 33.5-35.5 WBC (test code = WBC) 3.4 L K/UL 3.6-11.1 HGB (test code = HGB) 14.8 G/DL 12.9-16.1 RBC (test code = RBC) 5.09 CU/MM 4.27-5.49 MCH (test code = MCH) 29.0 PQ 26.8-33.2 MCV (test code = MCV) 85 FL 79-95 LIPID [id number] 08:39:00 Test Item Value Reference Range Comments CHOL (test code = CHOL) 206 MG/DL 140-200 HDL (test code = HDL) 54 MG/DL 32-96 DLDL (test code = DLDL) 125 MG/DL 100-130 CHD (test code = CHD) 26.21 TGL (test code = TGL) 127 MG/DL 30-200 Assessments Condition Name Status Diagnosis Date Treating Clinici an Morbid (severe) obesity due to excess Active calories Body mass index (BMI) 45.0-49.9, adult Active Intrinsic (allergic) eczema Active Encounter for immunization Active Essential (primary) hypertension Active Mixed hyperlipidemia Active Unilateral primary osteoarthritis, left knee Active Unilateral primary osteoarthritis, right Active knee Essential (primary) hypertension Active Mixed hyperlipidemia Active Unilateral primary osteoarthritis, right Active knee Unilateral primary osteoarthritis, left knee Active Essential (primary) hypertension Active Gastro-esophageal reflux disease without Active esophagitis Primary insomnia Active Body mass index (BMI) 50.0-59.9, adult Active Essential (primary) hypertension Active Unilateral primary osteoarthritis, right Active knee Alcoholic cirrhosis of liver without ascites Active Thrombocytopenia, unspecified Active Essential (primary) hypertension Active Ventral hernia without obstruction or Active gangrene Bilateral primary osteoarthritis of knee Active Alcoholic cirrhosis of liver without ascites Active Essential (primary) hypertension Active Hyperlipidemia, unspecified Active Bilateral primary osteoarthritis of knee Active Alcoholic cirrhosis of liver without ascites Active Pain in left knee Active Pain in right knee Active Encounter for immunization Active Thrombocytopenia, unspecified Active Unilateral primary osteoarthritis, left knee Active Unilateral primary osteoarthritis, right Active knee Ventral hernia without obstruction or Active gangrene Body mass index (BMI) 45.0-49.9, adult Active Unilateral primary osteoarthritis, right Active knee Unilateral primary osteoarthritis, left knee Active Mixed hyperlipidemia Active Morbid (severe) obesity due to excess Active calories Essential (primary) hypertension Active Unilateral primary osteoarthritis, right Active knee Ventral hernia without obstruction or Active gangrene Morbid (severe) obesity due to excess Active calories Cirrhosis - W/o Mention Of Alcohol Active Pain - Back (Unspecified) Active Obesity (Unspecified) Active Obesity (Unspecified) Active Vaccination - Influenza Active Urinary Hesitancy Active Respiratory Abnormality - Other Active Hyperhidrosis - Generalized Active Urinary Hesitancy Active Fatigue/Malaise (Other) Active Respiratory Abnormality - Unspecified Active Respiratory Abnormality - Other Active Obesity (Unspecified) Active Fatigue/Malaise (Other) Active Screening - Ca (Prostate) Active Pain - Joint (Site Unspecified) Active Cirrhosis - Alcoholic Active Weight Gain Active Obesity (Unspecified) Active Pain - Back (Unspecified) Active Cirrhosis and chronic liver disease Active Cirrhosis and chronic liver disease Active Cirrhosis and chronic liver disease Active Cirrhosis and chronic liver disease Active Cirrhosis and chronic liver disease Active Cirrhosis and chronic liver disease Active Encounters Start End Encounter Admission Attending Care Care Encounter Date/Time Date/Time Type Type Clinicians Facility Department ID 2020-04-11 2020-04-[address] [facility] B [id number] 08:00:00 08:00:00 Ad Children [id number] s [id number] and [id number] [facility], 2020-01-26 2020-01-[address] [facility] 0 [id number] 08:15:00 08:15:00 Ad Mckinley [id number] s [id number] and [id number] [facility], 2019-10-27 2019-10-[address] [facility] 1 [id number] 08:45:00 08:45:00 Ad Children [id number] s [id number] and [id number] [facility], 2019-07-13 2019-07-[address] [facility] 1 [id number] 08:15:00 08:15:00 Ad Mckinley [id number] s [id number] and [id number] [facility], 2019-04-13 2019-04-[address] [facility] 0 [id number] 08:30:00 08:30:00 Ad Mckinley???s [id number] and [id number] [facility] [id number] [facility] 2018-12-09 2018-12-[address] [facility] D [id number] 08:15:00 08:15:00 Ad Mckinely [id number] s [id number] and [id number] [facility], 2018-09-09 2018-09-[address] [facility] 4 [id number] 08:15:00 08:15:00 Ad Mckinley [id number] s [id number] and [id number] [facility], 2018-06-10 2018-06-[address] [facility] D [id number] 08:15:00 08:15:00 Ad Children [id number] s [id number] and [id number] [facility], [place] 2018-03-10 2018-03-10 Outpatient [place], [facility] 4 [id number] 14:15:00 14:15:00 Ad Mckinley [id number] s [id number] and [id number] [facility] [place] 2017-08-30 2017-08-30 Outpatient [place], [facility] D [id number] 09:45:00 09:45:00 Ad Mckinley [id number] s [id number] and [id number] [facility] [place] 2016-12-25 2016-12-25 Outpatient [place], [facility] 2 [id number] 10:00:00 10:00:00 Ad Mckinley [id number] s [id number] and [id number] [facility] [place] 2015-09-23 2015-09-23 Outpatient Bundle FABIAN Glass [id number] 00:00:00 00:00:00 C, [facility] [id number] [facility], [id number] Inc. [id number] 2014-07-01 2014-07-01 Outpatient Bundle FABIAN Glass [id number] 08:30:00 08:30:00 C, [facility] [id number] [facility], [id number] Inc. [id number] 2014-05-07 2014-05-07 Outpatient Bundle FABIAN Glass [id number] 07:45:00 07:45:00 C, [facility] [id number] [facility], [id number] Inc. [id number] 2014-04-13 2014-04-13 Outpatient Bundle FABIAN Glass [id number] 10:45:00 10:45:00 C, [facility] [id number] [facility], [id number] Inc. [id number] 2014-03-04 2014-03-04 Outpatient Bundle FABIAN Glass [id number] 08:00:00 08:00:00 C [facility] [id number] [facility], [id number] Inc. [id number] 2013-11-03 2013-11-03 Outpatient Bundle FABIAN JOE Glass [id number] 08:00:00 08:00:00 [facility] [id number] [facility], [id number] Inc. [id number] Social History This patient has no known social history. Vital Signs This patient has no known vital signs.
== END ==
LOC: OD 10:22
PROVIDERS: ATTEND Physician Assistant
DX: K70.30 Alcoholic cirrhosis of liver without ascites (principal)
CPT/HCPCS: 36415; 82105; 85610